=== PATIENT | male | born 1970 | race Asian ===

== ENCOUNTER 2024-07-11 11:10 | Emergency (ER) | payer SELFPAY ==
[~2024-07-11] VITALS: Ht 172.7 cm; Wt 66.0 kg
[2024-07-11 11:24] VITALS: O2SAT 100
[2024-07-11] MEDS: LIDOCAINE 5% PATCH TOP STA (12:32)
[2024-07-11] MEDS: KETOROLAC 30MG/ML VIAL IM ONE (12:33)
[2024-07-11] MEDS ORDERED: LIDO-53 TP (13:05)
[2024-07-11] MEDS ORDERED: IBUP-2029 MT (13:05)
[2024-07-11] MEDS ORDERED: METH-773 MT (13:07)
[2024-07-11 13:18] VITALS: BP 132/87; PULSE 98; RESP 16; TEMP 37.2; O2SAT 100
== END 2024-07-11 13:23 | disposition home or self-care (01) ==
LOC: ER 11:59
DX: M54.50 Low back pain, unspecified (principal); E11.9 Type 2 diabetes mellitus without complications; Z98.890 Other specified postprocedural states
CPT/HCPCS: 99283; 96372; J1885